=== PATIENT | female | born 1930 | race Native Hawaiian/Other Pacific Islander ===

== ENCOUNTER 2017-04-05 07:51 | Inpatient (IN) | payer OTHER ==
[2017-04-05] VITALS (19 sets, daily range): BP systolic 70–138; BP diastolic 30–84; TEMP 95–97.6; Ht 157.5 cm; Wt 60.0 kg
[~2017-04-05] VITALS: Ht 157.5 cm; Wt 60.0 kg
[2017-04-05 09:09] LABS: PLATELET COUNT 259 K/uL (152-353)
[2017-04-05 09:16] LABS: POTASSIUM 4.4 mmol/L (3.6-5.2); SODIUM 133 mmol/L (136-145)
[2017-04-05 20:06] LABS: PLATELET COUNT 209 K/uL (152-353)
[2017-04-05 20:13] LABS: POTASSIUM 3.7 mmol/L (3.6-5.2); SODIUM 137 mmol/L (136-145)
[2017-04-05] MEDS ORDERED: ALPR0.2566 PO (22:26)
[2017-04-05] MEDS ORDERED: PRED10TA27 PO (22:28)
[2017-04-05] MEDS ORDERED: TRAZ100T PO (22:29)
[2017-04-05] MEDS ORDERED: HYZAAR1 TA1 PO (22:32)
[2017-04-05] MEDS ORDERED: SIMV20TA2 PO (22:32)
[2017-04-05] MEDS ORDERED: OMEP40CA PO (22:33)
[2017-04-05] MEDS ORDERED: TESSALON PER100 MG PO (22:34)
[2017-04-05] MEDS ORDERED: PROAIR HFA IN (22:35)
[2017-04-05] MEDS ORDERED: HYDR5TAB9 PO (22:37)
[2017-04-06] VITALS (19 sets, daily range): BP systolic 97–148; BP diastolic 44–96; TEMP 97–100.1
[2017-04-06 06:30] LABS: PLATELET COUNT 221 K/uL (152-353)
[2017-04-07] VITALS (15 sets, daily range): BP systolic 97–150; BP diastolic 57–94; TEMP 98–99.3
[2017-04-07 07:25] LABS: PLATELET COUNT 210 K/uL (152-353)
[2017-04-07 07:41] LABS: POTASSIUM 3.7 mmol/L (3.6-5.2); SODIUM 139 mmol/L (136-145)
[2017-04-08] VITALS: BP 150/99
[2017-04-08 10:00] VITALS: BP 128/74; TEMP 98
[2017-04-08 10:58] LABS: PLATELET COUNT 233 K/uL (152-353)
[2017-04-08 11:15] LABS: POTASSIUM 2.6 mmol/L (3.6-5.2)
[2017-04-08 15:00] VITALS: BP 113/82; TEMP 98
== END 2017-04-08 17:55 | disposition short-term general hospital (02) | DRG 330 ==
LOC: ED 07:51 → MED/SURG 15:00 → ICU 15:00
PROVIDERS: Specialist; ADMIT Internal Medicine
PROC: 0DBN0ZZ Excision of Sigmoid Colon, Open Approach (ICD-10-PCS; principal; 2017-04-05)
DX: K62.3 Rectal prolapse (principal); Q43.8 Other specified congenital malformations of intestine; K57.32 Diverticulitis of large intestine without perforation or abscess without bleeding; F05 Delirium due to known physiological condition; T81.4XXA Infection following a procedure, initial encounter; J95.89 Other postprocedural complications and disorders of respiratory system, not elsewhere classified; K57.30 Diverticulosis of large intestine without perforation or abscess without bleeding; R10.9 Unspecified abdominal pain; I95.81 Postprocedural hypotension; R06.2 Wheezing; Y83.8 Other surgical procedures as the cause of abnormal reaction of the patient, or of later complication, without mention of misadventure at the time of the procedure; Y92.238 Other place in hospital as the place of occurrence of the external cause
CPT/HCPCS: 36415; 36591; 51702; 80048; 80053; 81000; 82150; 82607; 82746; 82962; 83690; 83735; 84443; 85027; 85610; 85730; 87040; 87070; 87205; 93005; 94640; 94664; 94760; 96361; 96372; 96374; 96375; 99284; J0132; J0330; J0744; J1100; J1170; J1630; J1644; J1940; J1956; J2060; J2250; J2270; J2405; J2704; J2710; J2765; J3010; J3490; P9047; S0028

== ENCOUNTER 2017-04-08 17:55 | Outpatient (CLI) | payer OTHER, MEDICARE ==
[~2017-04-08 17:55] MED LIST: ALPR0.2566 PO; HYDR5TAB9 PO; HYZAAR1 TA1 PO; OMEP40CA PO; PRED10TA27 PO; PROAIR HFA IN; SIMV20TA2 PO; TESSALON PER100 MG PO; TRAZ100T PO
== END 2017-04-08 18:10 | disposition short-term general hospital (02) ==
LOC: AMB 17:55
DX: K62.3 Rectal prolapse (principal); Q43.8 Other specified congenital malformations of intestine; K57.32 Diverticulitis of large intestine without perforation or abscess without bleeding; F05 Delirium due to known physiological condition; T81.4XXA Infection following a procedure, initial encounter; J95.89 Other postprocedural complications and disorders of respiratory system, not elsewhere classified; K57.30 Diverticulosis of large intestine without perforation or abscess without bleeding; R10.9 Unspecified abdominal pain; I95.81 Postprocedural hypotension; R06.2 Wheezing
CPT/HCPCS: A0425; A0429

== ENCOUNTER 2017-04-13 18:04 | Outpatient (CLI) | payer OTHER, MEDICARE | END 2017-04-13 18:22 | disposition short-term general hospital (02) | LOC: AMB 18:04 | DX: K62.5 Hemorrhage of anus and rectum (principal) | CPT/HCPCS: A0425; A0427 ==

== ENCOUNTER 2017-09-13 12:55 | Outpatient (CLI) | payer OTHER, MEDICARE ==
[~2017-09-13] VITALS: Ht 157.5 cm; Wt 51.3 kg
[2017-09-13 13:23] LABS: PLATELET COUNT 378 K/uL (152-353)
[2017-09-13 13:40] LABS: POTASSIUM 4.4 mmol/L (3.6-5.2)
== END 2017-09-13 19:06 | disposition home or self-care (01) ==
LOC: INF 12:55
PROVIDERS: Emergency Medicine
DX: M80.08XG Age-related osteoporosis with current pathological fracture, vertebra(e), subsequent encounter for fracture with delayed healing (principal); R53.83 Other fatigue
CPT/HCPCS: 36415; 80053; 84443; 85027; 96372; J0897

== ENCOUNTER 2018-03-16 10:09 | Outpatient (CLI) | payer OTHER, MEDICARE ==
[~2018-03-16] VITALS: Ht 157.5 cm; Wt 51.3 kg
== END 2018-03-16 19:51 | disposition home or self-care (01) ==
LOC: INF 10:09
DX: M81.0 Age-related osteoporosis without current pathological fracture (principal)
CPT/HCPCS: 36415; 82310; 96372; J0897; J1200; J2930

== ENCOUNTER 2018-05-05 08:49 | Outpatient (CLI) | payer OTHER, MEDICARE | END 2018-05-05 19:36 | disposition home or self-care (01) | LOC: CT 08:49 | DX: H70.899 Other mastoiditis and related conditions, unspecified ear (principal); R51 Headache ==

== ENCOUNTER 2018-09-19 10:45 | Outpatient (CLI) | payer OTHER, MEDICARE ==
[~2018-09-19] VITALS: Ht 157.5 cm; Wt 51.3 kg
[2018-09-19 11:45] VITALS: BP 112/60; TEMP 98.7
== END 2018-09-19 11:45 | disposition home or self-care (01) ==
LOC: INF 10:45
DX: M81.0 Age-related osteoporosis without current pathological fracture (principal)
CPT/HCPCS: 96372; J0897

== ENCOUNTER 2019-03-14 13:50 | Outpatient (CLI) | payer OTHER, MEDICARE | END 2019-03-14 23:41 | disposition home or self-care (01) | LOC: LAB 13:50 | DX: R05 Cough (principal) | CPT/HCPCS: 87070; 87205 ==

== ENCOUNTER 2019-03-19 10:04 | Outpatient (CLI) | payer OTHER, MEDICARE ==
[~2019-03-19] VITALS: Ht 157.5 cm; Wt 51.3 kg
[2019-03-19 10:43] VITALS: BP 161/68; TEMP 98.3
== END 2019-03-20 05:48 | disposition home or self-care (01) ==
LOC: INF 10:04
DX: M81.0 Age-related osteoporosis without current pathological fracture (principal)
CPT/HCPCS: 36415; 82310; 96372; J0897

== ENCOUNTER 2019-09-21 09:34 | Outpatient (CLI) | payer OTHER, MEDICARE ==
[~2019-09-21] VITALS: Ht 157.5 cm; Wt 53.1 kg
[2019-09-21 10:00] VITALS: BP 166/65; TEMP 97.8
== END 2019-09-21 10:35 | disposition home or self-care (01) ==
LOC: INF 09:34
DX: M81.0 Age-related osteoporosis without current pathological fracture (principal)
CPT/HCPCS: 96372; J0897

== ENCOUNTER 2019-10-26 12:11 | Outpatient (CLI) | payer OTHER, MEDICARE | END 2019-10-26 22:47 | disposition home or self-care (01) | LOC: RESP 12:11 | DX: R06.02 Shortness of breath (principal) ==

== ENCOUNTER 2020-03-21 09:33 | Outpatient (CLI) | payer OTHER, MEDICARE ==
[~2020-03-21] VITALS: Ht 157.5 cm; Wt 53.1 kg
[2020-03-21 10:05] VITALS: BP 143/80; TEMP 98.9
== END 2020-03-21 13:30 | disposition home or self-care (01) ==
LOC: INF 09:33
DX: M81.0 Age-related osteoporosis without current pathological fracture (principal); R05 Cough; J44.9 Chronic obstructive pulmonary disease, unspecified
CPT/HCPCS: 36415; 82310; 96372; J0897

== ENCOUNTER 2020-10-03 09:20 | Outpatient (CLI) | payer OTHER, MEDICARE ==
[~2020-10-03] VITALS: Ht 157.5 cm; Wt 52.2 kg
[2020-10-03 09:45] VITALS: BP 173/74; TEMP 98.7
== END 2020-10-03 21:48 | disposition home or self-care (01) ==
LOC: INF 09:20
PROVIDERS: ATTEND Internal Medicine Endocrinology, Diabetes & Metabolism
DX: M81.0 Age-related osteoporosis without current pathological fracture (principal)
CPT/HCPCS: 82310; 96372; J0897

== ENCOUNTER 2020-12-28 10:03 | Emergency (ER) | payer OTHER, MEDICARE ==
[~2020-12-28] VITALS: Ht 157.5 cm; Wt 52.2 kg
[2020-12-28 10:06] VITALS: TEMP 98.6
[2020-12-28 10:42] LABS: PLATELET COUNT 230 K/uL (152-353)
[2020-12-28 10:51] LABS: POTASSIUM 3.1 mmol/L (3.6-5.2)
[2020-12-28 11:16] LABS: PARTIAL THROMBOPLASTIN TIME 21.5 SECONDS (24.5-33.6)
[2020-12-28 14:05] VITALS: BP 111/58
== END 2020-12-28 14:28 | disposition short-term general hospital (02) ==
LOC: ED 10:03
PROVIDERS: Hospitalist
DX: S22.41XA Multiple fractures of ribs, right side, initial encounter for closed fracture (principal); S22.20XA Unspecified fracture of sternum, initial encounter for closed fracture; S20.214A Contusion of middle front wall of thorax, initial encounter; S82.55XA Nondisplaced fracture of medial malleolus of left tibia, initial encounter for closed fracture; S81.811A Laceration without foreign body, right lower leg, initial encounter; K57.30 Diverticulosis of large intestine without perforation or abscess without bleeding; G93.89 Other specified disorders of brain; V89.2XXA Person injured in unspecified motor-vehicle accident, traffic, initial encounter; Y92.89 Other specified places as the place of occurrence of the external cause
CPT/HCPCS: 80048; 80320; 82550; 84484; 85027; 85610; 85730; 93005; 96360; 96365; 96375; 99284; J0690; J2270; J2405; J7040